=== PATIENT | male | born 1980 | race Caucasian/White ===

== ENCOUNTER 2019-10-07 14:03 | Inpatient (IN) | payer OTHER ==
--- NOTE | 2019-10-07 14:19 | PDOC ---
History of Present Illness - General Chief Complaint: Back Pain Stated Complaint: Back Pain Time Seen by Provider: 10/07/19 14:17 History Source: Patient Exam Limitations: No Limitations - History of Present Illness Initial Comments: 10/07/19 14:17 PCP: Sharyn Guerrero HPI: 39yo M with no PMH presenting with acute on chronic back pain, acutely worsened yesterday morning (10/06) after he exited the shower. Patient has seen Chiropractors, PT, and acupuncturists for the past year for ongoing sciatic/ back pain. Denies urinary / fecal incontinence, saddle anesthesia, weakness. Reports inability to stand 2/2 pain. Shooting electrical pain from midline back down the left leg to his feet. Similar but more intense than prior. 3x Tramadol yesterday, 1 today, 3x 5,325 Percocet today (11am, 12, 1pm). Baseline intermittent pain, moved over past two weeks, cross-fit on Monday. Pain improved by laying flat. Prior xray, no further advanced imaging, never seen Ortho. Denies CP, SOB, fevers, chills, N/V, incontinence, weakness. All: Denies Meds: Tramadol and Percocet 5 for back pain PRN PMH: as above PSH: denies SHx: denies Past History - Travel Traveled outside of the country in the last 30 days: No Close contact w/someone who was outside of country & ill: No - Past Medical History Allergies/Adverse Reactions: Allergies Allergy/AdvReac Type Severity Reaction Status Date / Time No Known Allergies Allergy Verified 10/07/19 14:09 Home Medications: Ambulatory Orders Ibuprofen/Famotidine [Duexis 800-26.6 mg Tablet] 1 tab PO TID 10/07/19 Oxycodone HCl/Acetaminophen [Percocet 5-325 mg Tablet] 1 - 2 tab PO Q4H PRN COPD: No - Psycho Social/Smoking Cessation Hx Smoking History: Never smoked Review of Systems - Review of Systems Able to Perform ROS?: Yes Is the patient limited Korean proficient: Yes Constitutional: No: Chills, Fever, Weakness HEENTM: No: Recent change in vision, Hearing Loss, Throat Pain, Difficulty Swallowing Respiratory: No: Cough, Shortness of Breath Cardiac (ROS): No: Chest Pain, Irregular Heart Rate, Palpitations, Chest Tightness ABD/GI: No: Constipated, Diarrhea, Nausea, Vomiting : No: Burning, Dysuria, Discharge Musculoskeletal: Yes: See HPI, Back Pain, Muscle Pain. No: Joint Pain, Joint Swelling, Joint Stiffness Integumentary: No: Bruising, Flushing, Pruritus, Rash Neurological: Yes: See HPI, Numbness, Tingling, Other (no incontinence or saddle anesthesia). No: Headache, Weakness Psychiatric: No: Anxiety, Depression, Emotional Problems Endocrine: No: Increased Thirst, Increased Urine, Change in Weight Hematologic/Lymphatic: No: Anemia, Blood Clots, Easy Bleeding All Other Systems: Reviewed and Negative *Physical Exam - Vital Signs Last Vital Signs Temp Pulse Resp BP Pulse Ox 97.9 F 65 16 124/79 99 10/07/19 14:09 10/07/19 14:09 10/07/19 14:09 10/07/19 14:09 10/07/19 14:09 - Physical Exam 10/07/19 14:18 Vitals reviewed, AFVSS WDWN man, appears state age, no acute distress, laying flat for comfort MMM, EOMI, NCATm trachea midline RRR, nl s1s2s, no murmur appreciated CTABL, normal WOB, full sentences, no wheezes / rales / rhonchi Soft, non-tender, non-distended 5+ strength bilateral feet, proximal leg muscles difficult to assess given back pain, pain at 30 degrees passive on left, 45 degress on right, sensation preserved throughout with mild decrease on left compared to right, CN grossly intact, UE normal bilaterally, gait not assessed 2+ radial, PT, and DP pulses bilaterally WWP, no clubbing / cyanosis / edema Medical Decision Making - Medical Decision Making 10/07/19 15:15 39yo M with no PMH presenting with acute on chronic LBP with sciatic character and no other focal neurologic deficits concerning for cord compression. History and physical c/w sciatica. Will attempt pain control / ambulation to determine disposition. No need for labs in this otherwise healthy male with stable vitals and normal non-MSK/neuro exams. - Pain control: Toradol 60mg IM, Lidoderm Patch, Valium 2mg - Imaging: CT Lumbar spine, w/o contrast - Dispo Plan: -If ambulatory, discharge with CT CD, plan for epidural as scheduled tomorrow , will provide OP ortho referral / ?MRI -If non-ambulatory after pain control, admit for intractable back-pain. 10/07/19 17:42 - CT with disk herniation - Patient remains unable to ambulate, provided with crutches - no benefit - Basic labs ordered Dispo: Admit med/surg for intractable back pain / disk herniation / inability to ambulate Discharge - Discharge Information Problems reviewed: Yes Clinical Impression/Diagnosis: Sciatic leg pain, Unable to ambulate, Intractable back pain, Intervertebral disk disease Condition: Improved Disposition: HOME - Admission Yes - Follow up/Referral Referrals: Sharyn Guerrero MD [Primary Care Provider] - - Patient Discharge Instructions Patient Printed Discharge Instructions: DI for Sciatica, DI for Back Pain With Sciatica Additional Instructions: Please follow up with Dr. Guerrero as planned for your epidural injection tomorrow. A referral has been provided for you for evaluation by an orthopaedic surgeon, please call their office to schedule an appointment. Return to the ED for any new or concerning symptoms including but not limited to : urinary incontinence, fecal incontinence, new numbness around the groin, continued inability to walk due to your pain - as these are all reasons for either emergent intervention or hospital admission. - Post Discharge Activity
[2019-10-07] MEDS ORDERED: LIDOCAINE 5% TOPICAL PATCH TP ONE (14:41)
[2019-10-07] MEDS ORDERED: KETOROLAC TROMETHAMINE 30 MG/1 ML VIAL IM ONE (14:43)
[2019-10-07] MEDS ORDERED: diazePAM 5 MG TABLET PO ONE (14:48)
[2019-10-07] MEDS ORDERED: KETOROLAC TROMETHAMINE 60 MG/2 ML VIAL IM ONE (14:59)
[2019-10-07] MEDS ORDERED: diazePAM 2 MG TABLET ONE (15:01)
[2019-10-07] MEDS ORDERED: LIDOCAINE 5% TOPICAL PATCH ONE (15:01)
[2019-10-07] MEDS ORDERED: KETOROLAC TROMETHAMINE 30 MG/1 ML VIAL ONE (15:01)
--- NOTE | 2019-10-07 15:03 | PDOC ---
Attending Attestation - Resident Resident Name: Dusty Cooper - ED Attending Attestation I have performed the following: I have examined & evaluated the patient, The case was reviewed & discussed with the resident, I agree w/resident's findings & plan - HPI HPI: 10/07/19 15:01 Healthy 39-year-old male with 1 year history of low back pain treated with chiropractors and opiate prescriptions from urgent cares presents now with exacerbation of his symptoms over the last few days. Patient reports predominantly left low back pain radiating posteriorly to the foot, waxes and wanes in severity, never associated with bowel or bladder issues or leg weakness , but does have occasional paresthesias. Has had x-ray imaging in the past with epidural injection 3 months ago that was effective, but symptoms have progressively worsened over the last few weeks, and more acutely over the weekend after CrossFit exercise routine. No fevers or chills, no trauma, no bowel or bladder issues or motor deficit. - Physicial Exam PE: 10/07/19 15:02 Vitals are normal Alert lying in stretcher in some distress with attempted positional changes No midline spine tenderness 5 out of 5 flexion/extension of bilateral hips/knees/ankle/toes, positive straight leg raise on the left, neurovascular intact otherwise. - Medical Decision Making 10/07/19 15:02 39-year-old male with acute on chronic low back pain with radiculopathy on the left, normal vitals and neurological exam without red flags on history. Pain cocktail with NSAID, lidocaine patch, muscle relaxant Will obtain CT imaging since patient has not had advanced imaging in the past Patient is scheduled to have epidural injection tomorrow morning and [facility], will try to optimize pain control so he can make his appointment.
[2019-10-07 18:19] LABS: BASO % 0.8 % (0-2.0); EOS % 0.8 % (0-4.5); HEMATOCRIT 45.2 % (35.4-49); HEMOGLOBIN 15.1 GM/dL (11.7-16.9); LYMPH % 23.7 % (8-40); MCH 31.5 pg (25.7-33.7); MCHC 33.5 g/dl (32.0-35.9); MEAN CELL VOLUME 94.1 fl (80-96); MEAN PLT VOLUME 8.5 fl (7.5-11.1); MONO % 6.3 % (3.8-10.2); NEUT % 68.4 % (42.8-82.8); PLATELET COUNT 213 K/MM3 (134-434); RDW 13.4 % (11.9-15.9)
[2019-10-07] MEDS ORDERED: ACETAMINOPHEN 325 MG TABLET (FP) PO PRN (18:30)
[2019-10-07] MEDS ORDERED: morphine SULFATE 4 MG/ML VIAL IVPUSH PRN (18:30)
--- NOTE | 2019-10-07 18:32 | HP ---
Admitting History and Physical - Primary Care Physician PCP: Joelle Dean - Admission History of Present Illness: 39-year-old male with 1 year history of low back pain treated with chiropractors and opiate prescriptions from urgent cares presents now with exacerbation of his symptoms over the last few days. Patient reports predominantly left low back pain radiating posteriorly to the foot, waxes and wanes in severity, never associated with bowel or bladder issues or leg weakness , but does have occasional paresthesias. Has had x-ray imaging in the past with epidural injection 3 months ago that was effective, but symptoms have progressively worsened over the last few weeks, and more acutely over the weekend after CrossFit exercise routine. No fevers or chills, no trauma, no bowel or bladder issues or motor deficit. - - Smoking History Smoking history: Never smoked Home Medications - Allergies Allergies/Adverse Reactions: Allergies Allergy/AdvReac Type Severity Reaction Status Date / Time No Known Allergies Allergy Verified 10/07/19 14:09 - Home Medications Home Medications: Ambulatory Orders Ibuprofen/Famotidine [Duexis 800-26.6 mg Tablet] 1 tab PO TID 10/07/19 Oxycodone HCl/Acetaminophen [Percocet 5-325 mg Tablet] 1 - 2 tab PO Q4H PRN Physical Examination Vital Signs: Vital Signs Temperature 97.9 F 10/07/19 14:09 Pulse Rate 65 10/07/19 14:09 Respiratory Rate 16 10/07/19 14:09 Blood Pressure 124/79 10/07/19 14:09 O2 Sat by Pulse Oximetry (%) 99 10/07/19 14:09 Constitutional: Yes: No Distress HENT: Yes: Atraumatic Neck: Yes: Supple Cardiovascular: Yes: Regular Rate and Rhythm Respiratory: Yes: CTA Bilaterally Gastrointestinal: Yes: Normal Bowel Sounds Musculoskeletal: Yes: WNL Neurological: Yes: Alert, Oriented Labs: CBC, BMP 10/07/19 18:15 Imaging - Results Cat Scan: Report Reviewed Problem List - Problems (1) Intervertebral disk disease Assessment/Plan: prn pain meds PT neuro/neuro surg/pain management (2) Intractable back pain Code(s): M54.9 - DORSALGIA, UNSPECIFIED (3) Sciatic leg pain Code(s): M54.30 - SCIATICA, UNSPECIFIED SIDE (4) Unable to ambulate Code(s): R26.2 - DIFFICULTY IN WALKING, NOT ELSEWHERE CLASSIFIED Assessment/Plan Laboratory Results - last 24 hr 10/07/19 18:15 WBC 12.0 H RBC 4.80 Hgb 15.1 Hct 45.2 MCV 94.1 MCH 31.5 MCHC 33.5 RDW 13.4 Plt Count 213 MPV 8.5 Absolute Neuts (auto) 8.2 H Neutrophils % 68.4 Lymphocytes % 23.7 Monocytes % 6.3 Eosinophils % 0.8 Basophils % 0.8 Nucleated RBC % 0 Active Medications Generic Name Dose Route Start Last Admin Trade Name Freq PRN Reason Stop Dose Admin Acetaminophen 650 mg 10/07/19 18:30 Tylenol - PO Q6H PRN FEVER Miscellaneous 1 each 10/07/19 22:00 Lidoderm Patch Removal MC [email or web address] [facility] Morphine Sulfate 3 mg 10/07/19 18:30 Morphine Sulfate IVPUSH Q4H PRN PAIN LEVEL 6-10
[2019-10-07 18:35] LABS: URINE APPEARANCE CLEAR; URINE BILIRUBIN NEGATIVE (NEGATIVE); URINE COLOR YELLOW; URINE GLUCOSE (UA) NEGATIVE (NEGATIVE); URINE KETONE NEGATIVE (NEGATIVE); URINE LEUK ESTERASE NEGATIVE (NEGATIVE); URINE NITRITE NEGATIVE (NEGATIVE); URINE PROTEIN NEGATIVE (NEGATIVE); URINE UROBILINOGEN 0.2 mg/dL (0.2-1.0)
[2019-10-07 18:42] LABS: ALBUMIN 3.8 g/dl (3.4-5.0); BILIRUBIN,TOTAL 0.6 mg/dL (0.2-1); BLOOD UREA NITROGEN 12.8 mg/dL (7-18); CALCIUM 9.1 mg/dL (8.5-10.1); CREATININE 0.7 mg/dL (0.55-1.3); TOT PROT 6.7 g/dl (6.4-8.2)
[2019-10-07] MEDS ORDERED: DEXAMETHASONE SOD PHOSPHATE 20 MG/5 ML VIAL IVPB ONE (20:30)
--- NOTE | 2019-10-07 20:35 | CON.NEURO ---
Consult Consult Specialty:: Nhung Referred by:: PCP - History of Present Illness History of Present Illness: 39 year sold man with no PMH came in with pain Pain is sharp ten radiating to the left leg Cant stand ?? urinary hesitancy Played sports Monday No direct trauma to paula back No neck pain No relief on OTC - History Source History Provided By: Patient Limitations to Obtaining History: No Limitations - Smoking History Smoking history: Never smoked Home Medications - Allergies Allergies/Adverse Reactions: Allergies Allergy/AdvReac Type Severity Reaction Status Date / Time No Known Allergies Allergy Verified 10/07/19 14:09 - Home Medications Home Medications: Ambulatory Orders Ibuprofen/Famotidine [Duexis 800-26.6 mg Tablet] 1 tab PO TID 10/07/19 Oxycodone HCl/Acetaminophen [Percocet 5-325 mg Tablet] 1 - 2 tab PO Q4H PRN Family Medical History Family History: Unremarkable Review of Systems - Review of Systems Musculoskeletal: reports: Back Pain, Joint Pain, Muscle Weakness Physical Exam-Neuro Vital Signs: Vital Signs Temperature 97.9 F 10/07/19 14:09 Pulse Rate 67 10/07/19 19:41 Respiratory Rate 18 10/07/19 19:41 Blood Pressure 132/81 10/07/19 19:41 O2 Sat by Pulse Oximetry (%) 100 10/07/19 19:45 Constitutional: Yes: Well Nourished Neck: Yes: WNL Cardiovascular: Yes: WNL Labs: CBC, BMP 10/07/19 18:15 10/07/19 18:15 - Neuro Exam Level Of Consciousness: Yes: Oriented to Person, Oriented to Place, Oriented to Time Eyes: Yes: PERRLA Speech: WNL Dominant Hand: Right Cranial Nerves II-XII Intact: Yes Gag: Present DTR's: 0 Left Achilles, 1+ Left Bicep, 1+ Right Bicep, 1+ Right Achilles Response to light touch: Abnormal Motor Strength: 2/5: Left Leg, 3/5: Left Arm, Right Arm, Right Leg Gait: Deferred Imaging - Results Cat Scan: Image Reviewed Problem List - Problems (1) Intractable back pain Assessment/Plan: Acute back pain Syndrome No Cord compression or Equina Acute L4 radicluitis urine retention to monitor 1. Fall precautions 2. Ns consult Dr le 3. Decadron 10 mg IVPB now 4. neurontin 300 mg po q12 5. Straight cath now to rule out UR 6. MRI LS spine Thank you for paula kind referral Brenda Hooker MD Code(s): M54.9 - DORSALGIA, UNSPECIFIED
[2019-10-07] MEDS ORDERED: DEXAMETHASONE SOD PHOSPHATE 10 MG/1 ML VIAL IVPB ONE (21:30)
[2019-10-07] MEDS ORDERED: GABAPENTIN 100 MG CAPSULE (FP) PO SCH (22:00)
[2019-10-07] MEDS ORDERED: LIDOCAINE PATCH REMOVAL MC SCH ×2 (22:00)
[2019-10-07 22:20] VITALS: TEMP 97.6
[2019-10-07 22:46] VITALS: BP 131/77; PULSE 64; BMI 25.8
--- NOTE | 2019-10-07 23:43 | HOSP ---
Subjective - Review of Symptoms Events since last encounter: 39-year-old male with 1 year history of low back pain treated with chiropractors and opiate prescriptions from urgent cares presents now with exacerbation of his symptoms over the last few days. Patient reports predominantly left low back pain radiating posteriorly to the foot, waxes and wanes in severity, never associated with bowel or bladder issues or leg weakness , but does have occasional paresthesias. Has had x-ray imaging in the past with epidural injection 3 months ago that was effective, but symptoms have progressively worsened over the last few weeks. CT: Large extrude left paramedian L5-S1 disc herniation Ortho follow up noted: Dr. Hooker reviewed case, arranged transfer to [facility] for further care Transfer to [facility] under Dr. Betts care for sx treatment Patient understood reason for transfer aware, agress with plan of care Patient left the unit in stable condition Physical Examination Vital Signs: Vital Signs Temperature 97.6 F 10/07/19 22:18 Pulse Rate 64 10/07/19 22:18 Respiratory Rate 20 10/07/19 22:18 Blood Pressure 131/77 10/07/19 22:18 O2 Sat by Pulse Oximetry (%) 97 10/07/19 22:46 Constitutional: Yes: No Distress, Calm Eyes: Yes: Conjunctiva Clear, EOM Intact HENT: Yes: Atraumatic, Normocephalic Neck: Yes: Supple, Trachea Midline Cardiovascular: Yes: Regular Rate and Rhythm Respiratory: Yes: Regular, CTA Bilaterally Gastrointestinal: Yes: Normal Bowel Sounds, Soft Musculoskeletal: Yes: Back Pain Extremities: Yes: WNL Edema: No Peripheral Pulses WNL: Yes Neurological: Yes: Alert, Oriented Labs: CBC, BMP 10/07/19 18:15 10/07/19 18:15 Hospitalist Encounter Assessment: A/P # L5-S1 disc herniation # chronic/ Acute lumbar pain - transfer to [facility] under Dr. betts services, Dr. Banerjee arrranged transfer
[2019-10-08] MEDS ORDERED: LIDOCAINE 5% TOPICAL PATCH TP SCH (10:00)
--- NOTE | 2019-10-08 15:58 | DS ---
Physical Examination Vital Signs: Vital Signs Temperature 97.6 F 10/07/19 22:18 Pulse Rate 64 10/07/19 22:18 Respiratory Rate 20 10/07/19 22:18 Blood Pressure 131/77 10/07/19 22:18 O2 Sat by Pulse Oximetry (%) 97 10/07/19 22:46 Labs: CBC, BMP 10/07/19 18:15 10/07/19 18:15 Discharge Summary Problems reviewed: Yes Reason For Visit: DISORDER OF INTERVERTEBRAL DISC Condition: Improved - Instructions Referrals: Sharyn Guerrero MD [Primary Care Provider] - Disposition: TRANSFER ACUTE CARE/OTHER HOSP - Home Medications Comprehensive Discharge Medication List: Ambulatory Orders Ibuprofen/Famotidine [Duexis 800-26.6 mg Tablet] 1 tab PO TID 10/07/19 Oxycodone HCl/Acetaminophen [Percocet 5-325 mg Tablet] 1 - 2 tab PO Q4H PRN
== END 2019-10-07 23:50 | disposition short-term general hospital (02) | DRG 552 ==
LOC: JER 14:03 → JERBED 17:45 → J8W 20:34
PROVIDERS: ADMIT Internal Medicine; ATTEND Internal Medicine
DX: M51.17 Intervertebral disc disorders with radiculopathy, lumbosacral region (principal)
CPT/HCPCS: 36415; 72131-TC; 80053; 81003; 85025; 99285-25; J1100